=== PATIENT | male | born 1960 | race Caucasian/White ===

== ENCOUNTER → 2016-10-15 | Outpatient (REF) | payer OTHER ==
[~2016-10-15] MED LIST: /ADVA50050 IN; /ONDA4TA OR; ACET500T2 OR; ACIPHEX OR; ALEVE PO; EPIP0.3I IM; LIDO5DIS TOP; SYMB80AE IN; TYLENOL PM PO; XOPEAER IN
== END ==
LOC: M LAB REF 13:08
PROVIDERS: ATTEND Internal Medicine Pulmonary Disease
DX: J20.8 Acute bronchitis due to other specified organisms (principal)

== ENCOUNTER → 2016-10-30 | Outpatient (CLI) | payer BC, OTHER ==
[~2016-10-30] MED LIST changes: +ISOVUE-370 76% 100ML VIAL (Q9967) As Ordered ONE
--- NOTE | 2016-10-31 06:09 | REP ---
Clinical: Bronchiectasis. Technique: Axial contrast enhanced images from the thoracic inlet to the upper abdomen using 100 ml Isovue 370 intravenous contrast material with coronal and sagittal re-formations as well as high resolution imaging of the bilateral hemithoraces. Comparison: 11/27/2006. Findings: Moderate bronchiectasis is appreciated throughout the bilateral lung terrazas and most pronounced extending into the right middle lobe and bilateral lung bases. Scattered fibrosis and interstitial changes are appreciated again predominately involving the right middle lobe and lower lobes without evidence for acute consolidation, effusion or pneumothorax. There is a noncalcified lesion in the left upper lobe measuring 9.5 mm diameter (image 46) as well as an area of density along the medial right middle lobe measuring approximately 2.2 cm maximal diameter along with mediastinal and hilar adenopathy with nodes measuring up to 16 mm short axis diameter. The heart and pericardium appear normal. The thoracic aorta is unremarkable and without aneurysm or dissection. Musculoskeletal structures without focal osseous abnormality. Thyroid gland appears normal. Upper abdomen demonstrates normal bilateral adrenal glands. Incidental note is made of a hemangioma in the L1 vertebral body. Impression: 1. Diffuse bilateral moderate bronchiectasis with associated areas of interstitial disease/scarring and fibrosis. 2. Two noncalcified densities in the left upper lobe and right middle lobe as well as adenopathy with lymph nodes measuring 16 mm short-axis diameter. Neoplasm cannot be excluded. 3-6 months follow up and PET CT should be considered for further investigation. Signed by Tonny Jerome MD 10/31/2016 06:01 A
== END ==
LOC: M RAD 16:50
PROVIDERS: ATTEND Internal Medicine Pulmonary Disease
DX: J47.9 Bronchiectasis, uncomplicated (principal); R59.0 Localized enlarged lymph nodes; J98.4 Other disorders of lung
CPT/HCPCS: 71270; Q9967

== ENCOUNTER → 2016-11-12 | Outpatient (CLI) | payer BC, OTHER ==
[~2016-11-12] VITALS: Ht 180.3 cm; Wt 94.3 kg
[~2016-11-12] MED LIST changes: +ALBU17IN INH; +ALBU83IN INH; +ALBUTEROL SULFATE 2.5 MG/0.5 ML INH NEB SOLN As Ordered ONE; +ALBUTEROL SULFATE 2.5 MG/0.5 ML INH NEB SOLN INH ONE; +BREO1INH3 INH; +D5W 1,000 ML IV SCH; +EPINEPHrine 1MG/10ML SYRINGE 1.5IN As Ordered ONE; +GENT40VL INH; +IBUP200C PO; -ISOVUE-370 76% 100ML VIAL (Q9967) As Ordered ONE; +LIDOCAINE 2% MDV 20 ML VIAL As Ordered ONE; +LIDOCAINE 4% INJ 5 ML AMP INH ONE; +LIDOCAINE VISCOUS 2% SOLN 15ML UDC As Ordered ONE; +MIDAZOLAM INJ 2 MG/2 ML VIAL (J2250) As Ordered ONE; +MIDAZOLAM INJ 2 MG/2 ML VIAL (J2250) IV ONE; +MORPHINE 10 MG/ML 1ML VIAL As Ordered ONE; +MORPHINE 4 MG/ML 1ML SYRINGE IV ONE; +PANT20TA PO
[2016-11-12 11:41] VITALS: BP 108/78
--- NOTE | 2016-11-12 12:20 | REP ---
Portable chest x-ray: Single AP view. HISTORY: Post bronchoscopy. Question pneumothorax. Comparison chest x-ray June 03, 2016. Findings: There is no evidence of pneumothorax or hydrothorax. Cardiomediastinal silhouette is unremarkable and unchanged. No infiltrate is seen. Impression: No complication identified. Signed by Kulwinder White MD 11/12/2016 12:33 P
--- NOTE | 2016-11-12 12:27 | RO ---
DATE OF PROCEDURE: 11/12/2016 PREPROCEDURE DIAGNOSIS: Abnormal x-ray. POSTPROCEDURE DIAGNOSIS: Abnormal x-ray. SURGEON: Rubén Alberts MD SPECIAL EDUCATION ASSOCIATE: ANESTHESIA: FINDINGS: Included an abnormal right vocal cord with granulation tissue and abnormal motion, copious mucus, minimal granulation tissue medial basilar segment of left lower lobe, and mild airway ectasis. PROCEDURE PERFORMED: Fiberoptic bronchoscopy with transbronchoscopic washings bilaterally times two, brushing right lower lobe, and brushing right middle lobe for microbiologic specimens. DESCRIPTION OF PROCEDURE: The patient was seen and the procedure explained to the patient, as well as all the possible complications pertaining thereto, written and informed consent were obtained and placed in the chart. Before the procedure, the patient received morphine 4 mg, Versed 6 mg. When the anesthetic had sufficient time to take effect, bronchoscope was placed in through the left naris and into the posterior oropharynx. The epiglottis and vocal cords were visualized and noted to be free of lesion and moving normally. When further advancing toward the vocal cords it became apparent that the right arytenoid cartilage was enlarged, moved medially during phonation, and the vocal cords did not close fully during cough effort. Photographs were taken. The bronchoscope was then placed by the vocal cords and into the trachea. The tracheal mucosa was involved with excessive secretions. The obdulia was sharp. The airways of the left lung were found partially occluded by mucus. Photographs were taken. The bronchoscopy was placed into the left mainstem bronchus. Saline was used to lavage the airways of the left lung, and specimens obtained were collected in a Lukens trap. There was an area of mild granulation tissue in the medial basilar segment of the left lower lobe. This was visualized. There was no friability. After removal of secretions, the bronchoscope was retracted to the obdulia and reintroduced in the right mainstem bronchus. The right lung was found similarly to be involved with copious secretions, particularly the basilar segment. Photographs were taken. Thereafter, saline was used to lavage the airways and brushings for microbiology were performed in a sterile fashion into the right lower lobe, medial basilar segment area involved on CT imaging, and the medial segment of the right middle lobe. When specimens had been retrieved, the airways were lavaged again with saline until no further secretions could be obtained. The bronchoscope was retracted out through the patient's nose. He tolerated the procedure well and suffered no apparently complications. Postprocedural chest x-ray is pending.
== END | disposition home or self-care (01) ==
LOC: M OPP 09:35
PROVIDERS: ATTEND Internal Medicine Pulmonary Disease
DX: J38.3 Other diseases of vocal cords (principal); J47.9 Bronchiectasis, uncomplicated; J20.8 Acute bronchitis due to other specified organisms; J45.40 Moderate persistent asthma, uncomplicated; Z88.8 Allergy status to other drugs, medicaments and biological substances; Z91.030 Bee allergy status; Z79.2 Long term (current) use of antibiotics; Z79.51 Long term (current) use of inhaled steroids; Z79.899 Other long term (current) drug therapy; Z79.1 Long term (current) use of non-steroidal anti-inflammatories (NSAID)
CPT/HCPCS: 31622; 31623; 71010; 87070; 87071; 87077; 87102; 87116; 87186; 87205; 87206; 88104; 94640; J2250

== ENCOUNTER → 2017-01-09 | Outpatient (REF) | payer OTHER ==
[~2017-01-09] MED LIST changes: -ALBUTEROL SULFATE 2.5 MG/0.5 ML INH NEB SOLN As Ordered ONE; -ALBUTEROL SULFATE 2.5 MG/0.5 ML INH NEB SOLN INH ONE; -D5W 1,000 ML IV SCH; -EPINEPHrine 1MG/10ML SYRINGE 1.5IN As Ordered ONE; -LIDOCAINE 2% MDV 20 ML VIAL As Ordered ONE; -LIDOCAINE 4% INJ 5 ML AMP INH ONE; -LIDOCAINE VISCOUS 2% SOLN 15ML UDC As Ordered ONE; -MIDAZOLAM INJ 2 MG/2 ML VIAL (J2250) As Ordered ONE; -MIDAZOLAM INJ 2 MG/2 ML VIAL (J2250) IV ONE; -MORPHINE 10 MG/ML 1ML VIAL As Ordered ONE; -MORPHINE 4 MG/ML 1ML SYRINGE IV ONE
== END ==
LOC: M LAB REF 13:33
PROVIDERS: ATTEND Internal Medicine Pulmonary Disease
DX: J47.0 Bronchiectasis with acute lower respiratory infection (principal); J45.40 Moderate persistent asthma, uncomplicated

== ENCOUNTER → 2017-02-03 | Outpatient (REF) | payer OTHER | LOC: M LAB REF 13:50 | PROVIDERS: ATTEND Internal Medicine Pulmonary Disease | DX: J15.1 Pneumonia due to Pseudomonas (principal) ==

== ENCOUNTER 2017-03-06 22:20 | Inpatient (IN) | payer BC, OTHER ==
[~2017-03-06] VITALS: Ht 180.3 cm; Wt 93.4 kg
[2017-03-06] MEDS ORDERED: METH75TA PO (22:40)
[2017-03-06] MEDS ORDERED: BIAX1TAB PO (22:40)
[2017-03-06] MEDS ORDERED: PRED20TA PO (22:40)
[2017-03-06] MEDS ORDERED: NAPR500T2 PO (22:40)
[2017-03-06 23:32] LABS: DIFF SLIDE NUMBER 328; MEAN CORPUSCULAR HEMOGLOBIN 32.3 pg (27.0-33.0); MEAN CORPUSCULAR HGB CONC 35.3 g/dl (32.0-36.5); MEAN CORPUSCULAR VOLUME 91.7 fl (80.0-96.0); PLATELET COUNT, AUTOMATED 189 k/mm3 (150-450); WHITE BLOOD COUNT 9.7 K/mm3 (4.0-10.0)
[2017-03-06] MEDS ORDERED: NS 1,000 ML IV SCH (23:50)
[2017-03-07] VITALS (8 sets, daily range): BP systolic 113–139; BP diastolic 79–91
--- NOTE | 2017-03-07 | REPUSA ---
Clinical history: Cough. Comparison: None. Findings: Frontal and lateral views of the chest were obtained. The mediastinum and cardiac silhouett e are within normal limits. The lungs are clear. No pleural effusion or pneumothorax is seen. The oss eous structures and soft tissues are unremarkable. Impression: No acute disease.
[2017-03-07 00:01] LABS: ANION GAP 10 MEQ/L (8-16); BLOOD UREA NITROGEN 19 MG/DL (7-18); CALCIUM LEVEL 9.3 MG/DL (8.5-10.1); CARBON DIOXIDE LEVEL 20 MEQ/L (21-32); CHLORIDE LEVEL 108 MEQ/L (98-107); CREATININE FOR GFR 1.45 MG/DL (0.70-1.30); GLUCOSE, FASTING 171 MG/DL (70-105); POTASSIUM SERUM 2.8 MEQ/L (3.5-5.1); SODIUM LEVEL 138 MEQ/L (136-145)
[2017-03-07] MEDS: ONDANSETRON 4MG/2ML VIAL (J2405) IV ONE ×2 (00:02)
[2017-03-07 00:13] LABS: BANDS 2 % (< 11)
[2017-03-07] MEDS ORDERED: KCL 10MEQ IN 100ML SWI (KRUN) 10 MEQ in APPROPRIATE DILUENT 1 EA IV ONE ×2 (00:15)
[2017-03-07] MEDS ORDERED: POTASSIUM CHLORIDE 10 MEQ SR TABLET PO ONE (00:15)
[2017-03-07 00:16] LABS: ALT/SGPT 27 U/L (12-78); AST/SGOT 19 U/L (15-37)
[2017-03-07 00:17] LABS: ALBUMIN 3.7 GM/DL (3.2-5.2); ALBUMIN/GLOBULIN RATIO 0.86 (1.00-1.93); ALKALINE PHOSPHATASE 100 U/L (45-117); BILIRUBIN,DIRECT 0.1 MG/DL (0.0-0.2); BILIRUBIN,TOTAL 0.3 MG/DL (0.2-1.0)
[2017-03-07] MEDS ORDERED: ISOVUE-370 76% 100ML VIAL (Q9967) As Ordered ONE (00:17)
--- NOTE | 2017-03-07 01:20 | REPUSA ---
CLINICAL HISTORY: Abdominal pain. TECHNIQUE: Multiple axial, sagittal and coronal CT images were obtained through the abdomen and pelvi s after administration of intravenous contrast material. COMMENTS: Scattered simple hepatic cysts with the largest measuring 1.1 cm. The liver is mildly enlarged with decreased attenuation without mass or defect. There is no intra or extrahepatic biliary ductal dilatation. The spleen is normal. The gallbladder is within normal limits . The pancreas is of normal contour and attenuation characteristics. There is no evidence of adrenal mass. Both kidneys demonstrate prompt and equal nephrograms. The kidneys are normal in size, shape and conf iguration. There is no evidence of renal or ureteral mass. No renal or ureteral calculi are identifie d. There is no hydroureter or hydronephrosis. No evidence for appendicitis. Fluid-filled distended stomach. Fluid-filled distended proximal small b owel. Transition to normal caliber small bowel to the left lower quadrant. There is no evidence of ab dominal ascites or lymphadenopathy. There is no evidence of intrinsic or extrinsic bladder mass. There is no pelvic ascites or lymphadeno kory. Images of the lung bases show no evidence of pleural or parenchymal mass. There are no pleural effusi ons. Bilateral basilar changes of cystic bronchiectasis. The bony structures are free of lytic or blastic lesions. Multilevel degenerative changes are seen in volving the thoracolumbar spine. Scattered calcifications are seen involving the aorta and major bran ches compatible with atherosclerosis. IMPRESSION: Moderate partial small bowel obstruction. Transition zone in the left lower quadrant. No evidence of ascites. No evidence of bowel perforation or pneumatosis intestinalis. Mild hepatomegaly with fatty liver infiltration. Bilateral basilar changes of cystic bronchiectasis. Thank you for your kind referral of this patient.
--- NOTE | 2017-03-07 01:20 | REPUSA ---
CLINICAL HISTORY: Chest pain, exclude PE. TECHNIQUE: Multiple incremental axial, coronal and oblique images are obtained from the thoracic inle t to the upper abdomen. Intravenous contrast material was administered as per pulmonary embolism prot ocol. COMMENTS: Cystic bronchiectasis in the bases more on the right side. Associated bronchitis. Bilateral basilar atelectatic pulmonary changes. There is excellent opacification of pulmonary arterial system without evidence for pulmonary embolism . Aorta is of normal caliber without evidence for dissection or aneurysm. There is no evidence of pleural or parenchymal mass. There are no pleural effusions. There is no evid ence of hilar or mediastinal lymphadenopathy. The heart and great vessels are within normal limits. Images of the upper abdomen demonstrate no evidence of adrenal mass. The bony structures are free of lytic or blastic lesions. Multilevel degenerative changes are seen in volving the visualized thoracolumbar spine. Scattered calcifications are seen involving the aorta and major branches compatible with atherosclero sis. IMPRESSION: No evidence for pulmonary embolism. Cystic bronchiectasis. Bronchitis. Thank you for your kind referral of this patient.
[2017-03-07] MEDS ORDERED: MORPHINE 4 MG/ML 1ML SYRINGE IV ONE ×2 (01:30)
[2017-03-07] MEDS ORDERED: ALLE180T33 PO (02:02)
[2017-03-07] MEDS ORDERED: LIDO5DIS36 TD (02:02)
[2017-03-07] MEDS ORDERED: PRED10TA PO (02:02)
[2017-03-07] MEDS ORDERED: EPIP0.3I2 INJ (02:02)
[2017-03-07] MEDS ORDERED: TYLE1TAB5 PO (02:02)
[2017-03-07] MEDS ORDERED: PANT40TA2 PO (02:02)
[2017-03-07 03:24] LABS: MAGNESIUM LEVEL 1.8 MG/DL (1.8-2.4)
--- NOTE | 2017-03-07 04:08 | ER ---
DATE OF CONSULTATION: 03/07/2017 REASON FOR CONSULTATION: CT suggesting possible small bowel obstruction. HISTORY OF PRESENT ILLNESS: The patient is a pleasant 56-year-old man who presented to the emergency department for evaluation at 4 on 03/06. He presented complaining of primarily shortness of breath. He reported initially feeling unwell approximately 2 days earlier when he noted a fever in the afternoon or evening. He noted a little mild abdominal discomfort. He also reports that he has had diarrhea for 3 days. He again had a fever on the evening of the . On the , he continued to feel unwell. He reports having had a soft bowel movement in the morning. He had some flatus. He was not hungry, but continued to try to eat a diet and had two Ensures on the . He was seen in an urgent care center at about 2 o'clock in the afternoon of the . The treating individual listened to his lungs, diagnosed him with pneumonia and ordered prescriptions for prednisone 60 mg and clarithromycin twice daily. He returned home after getting his medications. He took one dose of both prednisone and erythromycin. He took about half of a nebulizer and slept for a time. He developed some nausea and just felt drained physically. He denied any vomiting. He came to the emergency department by I believe ambulance and had two nebulizers on the way to the emergency department. In the emergency department, he was evaluated with a chest x-ray, CT angiography of the chest, and a CT scan of the abdomen and pelvis. He also had laboratory studies obtained. His CT of the abdomen shows some variability in the diameter of his small bowel and the radiologist interpreted this as being possibly consistent with a partial small bowel obstruction. I was consulted to evaluate the patient. He continues to report that he has had small amounts of flatus. He does have some abdominal pain at rest and occasional more severe crampy-type pains. MEDICATIONS: The patient's reported medications at the time of presentation include: - Breo Ellipta inhaler once daily - albuterol inhaler, as well as albuterol nebulizers as needed - naproxen 500 mg twice daily as needed for pain - methocarbamol 750 mg one twice daily as needed for muscle spasms - clarithromycin 500 mg twice daily - EpiPen as needed - Tylenol Extra Strength as needed - lidocaine patch to the chest as needed - Protonix 40 mg daily - prednisone - Jennifer ALLERGIES: Reported to ONDANSETRON, which leads to the itching; LEVOFLOXACIN, which leads to itching; bee venom and seasonal allergies. PAST SURGICAL HISTORY: He has had a partial left knee replacement about 2 years ago and has had bilateral knee scopes. He has had a previous colonoscopy, as well as a bronchoscopy. 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 He has bronchiectasis. His primary physician is Dr. Bereket Pérez, but he has seen Dr. Alberts of pulmonary medicine for medicine issues. He did have a bronchoscopy actually back in October or November of this year. He has multiple cultures in the medical record, cultures which yielded Pseudomonas aeruginosa. He denies any cardiac issues. 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 He is and accompanied to the emergency department by his significant other. FAMILY HISTORY: Noncontributory. REVIEW OF SYSTEMS: Reveals no history of chest pain or palpitations. He denies seizure or stroke. He has had no history of deep venous thrombosis (DVT) or pulmonary embolus. He is not producing any sputum. He denies any dysuria or hematuria. As noted, he has been having diarrhea for 3 days. He has had some nausea, but no vomiting. He has had no melena or hematochezia. There is no history of peptic ulcer disease, hepatitis or pancreatitis. PHYSICAL EXAMINATION: Reveals a pleasant man lying quietly on the emergency department stretcher. His vital signs show a temperature of 97.2 degrees at time of presentation. His pulse had been running in the low 70s to mid 80s. His blood pressure most recently is 127/84. His oxygen saturation on room air is in the mid to upper 90s. The patient is alert and oriented. Sclerae are anicteric. Mucous membranes are moist to somewhat tacky. The neck is supple without mass. Heart exam shows a regular rate and rhythm. The lungs show generally clear breath sounds bilaterally. The abdomen is flat. He has no scars. There is no evident hernia. He has bowel sounds present in all four quadrants. There is no tympany to percussion. There is no significant tenderness to mild palpation. Extremities show no peripheral edema. He has intact radial and pedal pulses. Digital rectal examination is deferred. LABORATORY STUDIES: Include a CBC showing a white count of 9.7 with a differential showing 94% neutrophils, 2 bands, 3 lymphocytes, and 1 atypical lymphocyte. Hemoglobin is 18 with a hematocrit of 50 and the platelet count is 189,000. Chemistry profile shows a BUN of 19, creatinine 1.45. Sodium is 138 with a potassium of 2.8, chloride 108, and the CO2 is 20. Glucose is 171. His liver function tests are normal. Total protein is 8.0 with an albumin of 3.7. He has a troponin level of less than 0.02. He had a chest x-ray obtained which the teleradiologist interpreted as showing no acute disease. A CT angiogram of the chest revealed no evidence of pulmonary embolism with some bronchiectasis noted and a suggestion of bronchitis. A CT scan of the abdomen and pelvis was obtained, which the radiologist interpreted as showing a moderate to partial small bowel obstruction with a transition zone in the left lower quadrant. There was no ascites. There was no evidence of free air. There was no inflammatory change within the bowel. IMPRESSION: 1. No evidence by history for intestinal obstruction with a CT scan that shows some variability in the small bowel loops, but no strong evidence for bowel obstruction. 2. Three-day history of diarrhea, possible gastroenteritis. 3. Bronchiectasis and prior bronchiolitis obliterans-organizing pneumonia (BOOP). 4. Recent diagnosis of pneumonia, which may or may not be true, but that is not my specialty and somebody smarter will have to make the call on that. RECOMMENDATIONS: At this point, I see no point in an admission to the surgical service. I do not see any surgery in this man's near future, evident reason, either by history or CT for a bowel obstruction. He has not had any prior surgery. He has no evident tumor or infection and there is no evidence of hernia. His history is good, I think, for some sort of infectious process leading to his diarrhea, his fatigue and his fevers as reported at home. I think a medical evaluation and possible admission is in this man's best interest, particularly given his past history of pulmonary disease.
[2017-03-07] MEDS ORDERED: ALBUTEROL SULFATE 2.5 MG/0.5 ML INH NEB SOLN INH PRN (04:30)
[2017-03-07] MEDS ORDERED: ACETAMINOPHEN 650 MG SUPP PR PRN (04:30)
[2017-03-07] MEDS ORDERED: ALBUTEROL 90 MCG/ACT 8GM HFA INHALER INH PRN (04:30)
[2017-03-07] MEDS ORDERED: ONDANSETRON 4MG/2ML VIAL (J2405) IV PRN (04:30)
[2017-03-07] MEDS ORDERED: METOCLOPRAMIDE INJ 10MG/2ML VIAL (J2765) IV PRN (05:00)
[2017-03-07] MEDS: KCL 10MEQ IN 100ML SWI (KRUN) 10 MEQ in APPROPRIATE DILUENT 1 EA IV SCH ×4 (05:30→07:51)
[2017-03-07] MEDS: HEPARIN SOD (PORCINE) 5000 UNITS/ML VIAL SC SCH ×3 (05:30→21:25)
[2017-03-07] MEDS: NS 1,000 ML IV SCH ×2 (05:30→16:13)
[2017-03-07] MEDS: MORPHINE 2 MG/ML 1ML SYRINGE IV PRN ×2 (05:41→09:50)
--- NOTE | 2017-03-07 06:11 | ECGEPIP ---
Stationary ECG Study [facility] - ED Test Date: 2017-03-06 Pat Name: RADHA MEIER Department: Room: - Gender: M Eligibility Clerk: bell : 1960 Requested By: MARIA E River Order Number: [id number] Reading MD: Aaron Tate Measurements Intervals [place] Rate: 74 P: -10 DE: 145 QRS: 63 QRSD: 92 T: 47 QT: 363 QTc: 404 Interpretive Statements SINUS RHYTHM NSTTW ABNORMALITIES SIMILAR TO 10/31/11 Electronically Signed On 03-07-2017 6:11:31 EDT by Aaron Tate
[2017-03-07 07:14] LABS: MEAN CORPUSCULAR HEMOGLOBIN 31.9 pg (27.0-33.0); MEAN CORPUSCULAR HGB CONC 34.4 g/dl (32.0-36.5); MEAN CORPUSCULAR VOLUME 92.6 fl (80.0-96.0); PLATELET COUNT, AUTOMATED 206 k/mm3 (150-450); RED CELL DISTRIBUTION WIDTH 13.1 % (11.5-14.5); WHITE BLOOD COUNT 12.4 K/mm3 (4.0-10.0)
[2017-03-07 07:32] LABS: ANION GAP 6 MEQ/L (8-16); BLOOD UREA NITROGEN 16 MG/DL (7-18); CALCIUM LEVEL 9.1 MG/DL (8.5-10.1); CARBON DIOXIDE LEVEL 25 MEQ/L (21-32); CHLORIDE LEVEL 107 MEQ/L (98-107); GLOMERULAR FILTRATION RATE > 60.0 (>56); GLUCOSE, FASTING 140 MG/DL (70-105); POTASSIUM SERUM 3.9 MEQ/L (3.5-5.1); SODIUM LEVEL 138 MEQ/L (136-145)
--- NOTE | 2017-03-07 07:33 | HPEPDOC ---
General Date of Admission March 07, 2017 at 04:31 Primary Care Physician: CONG MENENDEZ MD [facility] Attending Physician: MARLY BENITEZ DO Chief Complaint The patient is a 56-year-old male admitted with a reason for visit of Partial Small Bowel Obstruction. Source: Patient, Family, RN notes reviewed, Old records Exam Limitations: No limitations Associated Symptoms: Diaphoresis, Nausea, Shortness of breath History of Present Illness Mr. Pena is a 56-year-old male who presents to [facility]'s emergency Department with fever, shortness of breath, and abdominal pain. He is accompanied by his who provides some of the history. Past medical history significant for BOOP, chronic pleuritic chest pain, allergies, gastric esophageal reflux disease, muscle spasms, history of chronic pulmonary pseudomonas, history of nonbleeding internal hemorrhoids. Patient states that he developed a fever of 101 Friday evening for which she took Tylenol. States that the fever broke Friday at 3 AM. Reports that he did not "feel too bad" so that morning he mowed the lawn for about half an hour and went to go lay down. He reports a fever that Friday of 101. Continued taking Tylenol. Reports that on morning he couldn't "shake anything "and he felt like "crap". Over these past 2-1/2 days he has had progressive shortness of breath with exertion. Denies shortness of breath at rest, orthopnea , PND. Patient then states that on Friday his stomach started to hurt. Indicates the pain across his lower abdomen. Went to the [facility] on was diagnosed clinically without chest x-ray to have pneumonia. Started on prednisone and clarithromycin. Patient has taken 1 dose of each. He returned home evening and went to lay down. Used half a nebulizer treatment shortness of breath and fell asleep. Reports that throughout his abdomen would hurt even with movement. Reports that he cannot evening and tried to cough something up, but was unable to. Reports feelings of nausea, minimal bloating, bilateral lower abdominal pain, weakness, dizziness, one episode of night sweats Friday evening, hoarseness, left flank pain, one episode of joint pain, nonbloody diarrhea since Friday. Patient also reports that he has lost about 5 pounds over the course of the week. Reports that he is remaining hydrated, but is not eating much. Patient denies headache, blurry vision, diplopia, acute vision loss, tinnitus, acute hearing loss, sore throat, cough, vomiting, lesions, rashes, unexplainable bruising, peripheral edema, urinary frequency, urinary urgency, dysuria, hematuria, constipation, melena, hematochezia. Hospitalist service was consulted and patient was admitted for further medical management. Home Medications Scheduled (Epipen 2-Yan) 0.3 Mg/0.3 Ml Inj, 0.3 MG INJ ASDIRECTED, (Reported) Clarithromycin (Biaxin) 500 Mg Tab, 500 MG PO BID, (Reported) Fexofenadine Hydrochloride (Jennifer Allergy) 180 Mg Tab, 180 MG PO DAILY, ( Reported) Fluticasone/Vilanterol (Breo Ellipta 200-25 Mcg/INH) 1 Inh Inh, 1 PUFF INH DAILY , (Reported) Lidocaine (Lidoderm) 5 % Dis, 1 PATCH TD DAILY, (Reported) PLACES ON CHEST Pantoprazole Sodium (Pantoprazole Sodium) 40 Mg Tab, 40 MG PO DAILY, (Reported) Prednisone (Prednisone) 10 Mg Tab, 10 MG PO ASDIRECTED, (Reported) 3 TABS FOR 3 DAYS, 2 TABS FOR 3 DAYS, 1 TAB FOR 3 DAYS Scheduled PRN (Tylenol Pm Extra Strength 500-25 mg) 1 Tab Tab, 1 TAB PO QHS PRN for SLEEP, ( Reported) Albuterol Sulfate (Ventolin Hfa) 200 Puff/8 Gm Aers, 2 PUFF INH Q4HP PRN for WHEEZING, (Reported) Albuterol Sulfate (Albuterol Sulfate) 2.5 Mg/3 Ml Nebu, 2.5 MG INH BIDP PRN for WHEEZING, (Reported) Methocarbamol (Methocarbamol) 750 Mg Tab, 1 TAB PO BID PRN for MUSCLE SPASMS, ( Reported) Naproxen (Naproxen) 500 Mg Tab, 1 TAB PO BID PRN for PAIN, (Reported) Allergies Coded Allergies: Bee Venom (Unverified Allergy, Mild, 01/12/13) SEASONAL ALLERGIES (Unverified Allergy, Mild, 03/26/10) Levofloxacin (Verified Allergy, Unknown, itching, 03/06/17) Ondansetron (Verified Allergy, Unknown, itching, 03/06/17) Past Medical History Medical History 1. BOOP 2. Allergies 3. Gastroesophageal reflux disease 4. Muscle spasms 5. Chronic pulmonary pseudomonas 6. History of nonbleeding internal hemorrhoids 7. History of adenomatous polyp 8. Cutaneous hyperkeratosis Surgical History 1. Bronchoscopy 2. Polypectomy 3. Colonoscopy 4. 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 Dyspnea, Edema, Lt Headedness Gastrointestinal: Reports: Nausea, Abdominal Pain (bilateral lower quadrants), Diarrhea (nonbloody, 3 days), Denies: Vomiting, Constipation, Melena, Hematochezia Genitourinary: Denies: Dysuria, Frequency, Incontinence, Hematuria Hematologic: Denies: Bruising Endocrine: Reports: Polydipsia Musculoskeletal: Reports: Joint Pain (one episode) Neurological: Reports: Weakness, Denies: Numbness Physical Examination General Exam: Positive: Alert, Cooperative, Moderate Distress Eye Exam: Positive: PERRLA, Conjunctiva & lids normal, EOMI, Negative: Sclera icteric, Ptosis ENT Exam: Positive: Atraumatic, Mucous membr. moist/pink, Pharynx Normal, Tongue Midline (White plaques noted on tongue diffusely), Nares Patent, Negative: Pharyngeal Edema Neck Exam: Positive: Supple, Lymphadenopathy, Negative: JVD, thyromegaly Chest Exam: Positive: Clear to auscultation, Normal air movement Heart Exam: Positive: Rate Normal, Regular Rhythm, Normal S1, Normal S2, Negative: Gallops, Murmurs, Rubs Telemetry: Positive: No significant arrhythmia Abdomen Exam: Positive: BS Hypoactive, Tenderness (exquisitely tender to light palpation), Other (thank you to palpation in the left upper quadrant, dull to percussion in the left upper quadrant), Negative: Soft Extremity Exam: Positive: Normal pulses, Negative: Clubbing, Cyanosis, Edema, Tenderness, Swelling Skin Exam: Negative: Rash, Lesion Neuro Exam: Positive: Normal Speech, Cranial Nerves 3-12 NL Other physical findings Chest x-ray IMPRESSION: No acute disease. Chest CT angiogram IMPRESSION: No evidence for pulmonary embolism. Cystic bronchiectasis. Bronchitis. Abdomen and pelvis CT with IV contrast only IMPRESSION: Moderate partial small bowel obstruction. Transition zone in the left lower quadrant. No evidence of ascites. No evidence of bowel perforation or pneumatosis intestinalis. Mild hepatomegaly with fatty liver infiltration. Bilateral basilar changes of cystic bronchiectasis. Vital Signs Vital Signs Date Time Temp Pulse Resp B/P (MAP) Pulse Ox O2 Delivery O2 Flow Rate FiO2 03/07/17 05:51 18 03/07/17 05:30 98.1 97 Room Air 03/07/17 05:30 79 134/85 (101) 95 131/86 (101) 97 139/82 (101) Height (in): 71 Weight (kg): 93.9 BMI (kg): 28.9 Laboratory Data Labs 24H Laboratory Tests 2 03/06/17 23:21: Neutrophils 94H, Band Neutrophils 2, Lymphocytes (Manual) 3L, Atypical Lymphocytes 1, Platelet Estimate NORMAL, Red Blood Cell Morphology NORMAL, Anion Gap 10, Glomerular Filtration Rate 54.0L, Lactic Acid Level 2.3*H, Calcium Level 9.3, Magnesium Level 1.8, Aspartate Amino Transf (AST/SGOT) 19, Alanine Aminotransferase (ALT/SGPT) 27, Alkaline Phosphatase 100, Total Bilirubin 0.3, Direct Bilirubin 0.1, Total Creatine Kinase 78, Creatine Kinase MB 1.0, Creatine Kinase MB Relative Index 1.28, Troponin I < 0.02, B-Type Natriuretic Peptide 9.7, Total Protein 8.0, Albumin 3.7, Albumin/Globulin Ratio 0.86L, Lipase 74 CBC/BMP Laboratory Tests 03/06/17 23:21 Red Blood Count 5.46, Mean Corpuscular Volume 91.7, Mean Corpuscular Hemoglobin 32.3, Mean Corpuscular Hemoglobin Concent 35.3, Red Cell Distribution Width 13.0 Microbiology Microbiology 03/06/17 Blood Culture, Received Pending 03/06/17 Blood Culture, Received Pending Assessment/Plan Mr. Pena is a 56-year-old male with a past medical history significant for BOOP, chronic pleuritic chest pain, allergies, gastric esophageal reflux disease, muscle spasms, history of chronic pulmonary pseudomonas, history of nonbleeding internal hemorrhoids who presents with fever , shortness of breath, and abdominal pain found to have partial small bowel obstruction. Plan / VTE VTE Prophylaxis Ordered?: Yes (heparin 5000 units subcutaneous every 8 hours) Plan Plan Fever Likely secondary to underlying bronchitis noted on CT angiogram. Obtain lactic acid, urinalysis and culture, blood culture. Provide Tylenol as needed for fever. Obtain vital signs every 4 hours. Abdominal pain Likely secondary to partial small bowel obstruction. Patient is nothing by mouth. Intravenous fluid resuscitation at 100 mLs/hr. Pain control with morphine. Reglan IV for nausea. Could consider placing an NG tube patient's abdominal distention worsens. General surgery has been consulted. Diarrhea Impression underlying gastroenteritis. Obtaining GI panel and stool for occult blood. Started patient on Bacid. Shortness of breath secondary to BOOP Continue patient on albuterol and Ventolin. Started patient on Symbicort. Oxygenation is appropriate at 95% on room air. Hypokalemia Likely secondary to patient's diarrhea. Replenishment provided in the emergency department. Also given patient two K-runs. The [facility]. Acute kidney injury Likely secondary to some mild dehydration. Intravenous fluid resuscitation 100 mLs/hr. Orthostatic vital signs. These be negative. As such orthostatic vital signs discontinued. Oral candidiasis Start patient on nystatin swish and swallow. Disposition Admit: Progressive care unit Anticipated hospitalization: 2 nights Attending: Dr. Meek Consultation: Dr. Dawson IVF: Initiate (NS @ 100 mLs/hr) Diet: Make NPO Activity: Bedrest (with commode) Medications: Change to IV, Replete Electrolytes IV, Replete Electrolytes PO Diagnostics: Check Labs, Repeat Labs in AM, Obtain Cultures Anticipated Discharge: Home RONEY IVERSON-Rody March 07, 2017 07:33
[2017-03-07 08:04] LABS: BANDS 10 % (< 11)
[2017-03-07 08:11] LABS: DIFF SLIDE NUMBER 104
[2017-03-07] MEDS ORDERED: NYSTATIN 500,000 U/5 ML SUSP UDC SS SCH (09:00)
[2017-03-07] MEDS: LIDOCAINE 5% (LIDODERM) PATCH TD SCH (09:00)
[2017-03-07] MEDS ORDERED: SYMBICORT 160/4.5MCG INHALER 6GM INH SCH (09:00)
[2017-03-07] MEDS: PANTOPRAZOLE 40MG INJ (PROTONIX) (C9113) IV SCH (09:05)
[2017-03-07] MEDS: LACTOBACILLUS ACIDOPHILUS CAP (BACID) PO SCH ×2 (09:08→21:24)
[2017-03-07] MEDS: PROMETHAZINE INJ 25 MG/ML VIAL (J2550) IV PRN ×2 (10:42→17:35)
--- NOTE | 2017-03-07 15:33 | IPNPDOC ---
Subjective Date Seen The patient was seen on 03/07/17. Subjective Chief Complaint/HPI The patient is a 56-year-old male admitted with a reason for visit of Partial Small Bowel Obstruction. Events since last encounter Symptoms improved- nausea mainly resolved, some abd discomfort, passing flatus, no bm feels wiped out Pulmonary: Denies: Dyspnea, Cough Cardiovascular: Denies: Chest Pain, Palpitations Gastrointestinal: Reports: Nausea, Abdominal Pain, Denies: Vomiting Objective Physical Examination General Exam: Positive: Alert, Cooperative, No Acute Distress Eye Exam: Negative: Sclera icteric ENT Exam: Positive: Mucous membr. moist/pink, Tongue Midline (geographic tongue ) Chest Exam: Positive: Clear to auscultation, Normal air movement, Negative: Rales, Rhonchi, Wheezing Heart Exam: Positive: Rate Normal, Regular Rhythm, Normal S1, Normal S2 Telemetry: Positive: No significant arrhythmia Abdomen Exam: Positive: BS Hypoactive, Other, Negative: Soft, Tenderness Assessment /Plan Problems (1) Geographic tongue Status: Chronic (2) Gastroenteritis Status: Acute Problem Text: Not PSBO I d/w Dr. Dawson in person ok to have ice chips no bm today- await gi panel still with nausea made better with phenergan (3) BOOP (bronchiolitis obliterans with organizing pneumonia) Status: Chronic Problem Text: with acute bronchitis no respiratory issues perfers to use his home breo which he brought with him (4) GERD (gastroesophageal reflux disease) Status: Chronic (5) ARF (acute renal failure) Status: Acute Problem Text: had elevated lactic acid improving- on ivf (6) Hypokalemia Status: Acute Problem Text: replete as needed (7) Bronchiectasis Status: Chronic Problem Text: chronic pseudomonas Plan/VTE VTE Prophylaxis Ordered?: Yes (heparin 5000 units subcutaneous every 8 hours) VS, I&O, 24H, Fishbone Vital Signs/I&O Vital Signs Date Time Temp Pulse Resp B/P (MAP) Pulse Ox O2 Delivery O2 Flow Rate FiO2 03/07/17 12:45 Room Air 03/07/17 12:11 113 136/79 (98) 94 03/07/17 12:00 99.2 18 I&O- Last 24 Hours up to 6 AM 03/07/17 06:00 Intake Total 0 ml Output Total 0 ml Balance 0 ml Laboratory Data 24H LABS Laboratory Tests 2 03/06/17 23:21: Neutrophils 94H, Band Neutrophils 2, Lymphocytes (Manual) 3L, Atypical Lymphocytes 1, Platelet Estimate NORMAL, Red Blood Cell Morphology NORMAL, Anion Gap 10, Glomerular Filtration Rate 54.0L, Lactic Acid Level 2.3*H, Calcium Level 9.3, Magnesium Level 1.8, Aspartate Amino Transf (AST/SGOT) 19, Alanine Aminotransferase (ALT/SGPT) 27, Alkaline Phosphatase 100, Total Bilirubin 0.3, Direct Bilirubin 0.1, Total Creatine Kinase 78, Creatine Kinase MB 1.0, Creatine Kinase MB Relative Index 1.28, Troponin I < 0.02, B-Type Natriuretic Peptide 9.7, Total Protein 8.0, Albumin 3.7, Albumin/Globulin Ratio 0.86L, Lipase 74 03/07/17 07:00: Neutrophils 78H, Band Neutrophils 10, Lymphocytes (Manual) 4L, Platelet Estimate NORMAL, Red Blood Cell Morphology NORMAL, Anion Gap 6L, Glomerular Filtration Rate > 60.0, Lactic Acid Level 1.5, Calcium Level 9.1, Monocytes ( Manual) 8, Blood Urea Nitrogen 16, Creatinine 1.30, Sodium Level 138, Potassium Level 3.9#, Chloride Level 107, Carbon Dioxide Level 25 03/07/17 07:48: Urine Appearance CLEAR, Urine Color YELLOW, Urine pH 6.0, Urine Specific [place] 1.051, Urine Protein NEGATIVE, Urine Glucose (UA) NEGATIVE, Urine Ketones TRACEH, Urine Urobilinogen 0.2, Urine Bilirubin NEGATIVE, Urine Leukocyte Esterase NEGATIVE, Urine Blood NEGATIVE, Urine Nitrite NEGATIVE, Urine WBC (Auto) 0, Urine RBC (Auto) 3, Urine Hyaline Casts (Auto) 0, Urine Bacteria (Auto) NEGATIVE, Urine Squamous Epithelial Cells 0, Urine Sperm (Auto) 03/07/17 09:06: Lactic Acid Followup at 4 Hours 1.4 CBC/BMP Laboratory Tests 03/06/17 23:21 Red Blood Count 5.46, Mean Corpuscular Volume 91.7, Mean Corpuscular Hemoglobin 32.3, Mean Corpuscular Hemoglobin Concent 35.3, Red Cell Distribution Width 13.0 03/07/17 07:00 Red Blood Count 5.32, Mean Corpuscular Volume 92.6, Mean Corpuscular Hemoglobin 31.9, Mean Corpuscular Hemoglobin Concent 34.4, Red Cell Distribution Width 13.1 , Calcium Level 9.1 Microbiology Microbiology 03/06/17 Blood Culture, Received Pending 03/06/17 Blood Culture, Received Pending 03/07/17 Urine Culture, Received Pending DONELL QUINTERO MD March 07, 2017 15:33
[2017-03-07] MEDS ORDERED: **NOTE PATIENT COMMENT** MISC XX SCH (21:00)
[2017-03-08] MEDS: NS 1,000 ML IV SCH ×2 (00:30→10:30)
[2017-03-08 06:00] VITALS: BP 115/76
[2017-03-08] MEDS: HEPARIN SOD (PORCINE) 5000 UNITS/ML VIAL SC SCH ×2 (06:15→12:15)
[2017-03-08 06:44] LABS: MEAN CORPUSCULAR HEMOGLOBIN 30.5 pg (27.0-33.0); MEAN CORPUSCULAR HGB CONC 32.8 g/dl (32.0-36.5); MEAN CORPUSCULAR VOLUME 92.9 fl (80.0-96.0); PLATELET COUNT, AUTOMATED 184 k/mm3 (150-450); RED CELL DISTRIBUTION WIDTH 13.3 % (11.5-14.5); WHITE BLOOD COUNT 7.1 K/mm3 (4.0-10.0)
[2017-03-08 06:51] LABS: ANION GAP 10 MEQ/L (8-16); BLOOD UREA NITROGEN 20 MG/DL (7-18); CALCIUM LEVEL 8.5 MG/DL (8.5-10.1); CARBON DIOXIDE LEVEL 18 MEQ/L (21-32); CHLORIDE LEVEL 112 MEQ/L (98-107); CREATININE FOR GFR 1.22 MG/DL (0.70-1.30); GLOMERULAR FILTRATION RATE > 60.0 (>56); GLUCOSE, FASTING 94 MG/DL (70-105); POTASSIUM SERUM 3.7 MEQ/L (3.5-5.1); SODIUM LEVEL 140 MEQ/L (136-145)
[2017-03-08 07:10] LABS: BASOPHILS 2 % (0-4); EOSINOPHILS 2 % (0-5)
[2017-03-08] MEDS: LIDOCAINE 5% (LIDODERM) PATCH TD SCH (09:00)
[2017-03-08] MEDS ORDERED: BREO ELLIPTA 200/25 (PATIENT'S OWN MED) INH SCH (09:00)
[2017-03-08] MEDS: LACTOBACILLUS ACIDOPHILUS CAP (BACID) PO SCH (09:49)
[2017-03-08] MEDS: PANTOPRAZOLE 40MG INJ (PROTONIX) (C9113) IV SCH (09:50)
[2017-03-08] MEDS ORDERED: ZOFR20TA PO (11:34)
[2017-03-08] MEDS ORDERED: RISATAB3 PO (11:34)
[2017-03-08] MEDS ORDERED: LOPERAMIDE 2 MG CAP PO ONE (11:45)
--- NOTE | 2017-03-08 12:16 | DSES ---
DATE OF ADMISSION: 03/07/2017 DATE OF DISCHARGE: 03/08/2017 SPECIALISTS INVOLVED IN CARE: Include Dr. Dawson. No complications during the stay. No procedures performed during the stay. DISCHARGE DIAGNOSIS: Is suspected partial small bowel obstruction, bronchiolitis obliterans-organizing pneumonia (BOOP), gastroesophageal reflux disease (GERD), acute renal failure, gastroenteritis with diarrhea, hypokalemia, bronchiectasis. The following is a summary of his hospitalization: This is a 56-year-old who presented with fever, shortness of breath, abdominal pain. He had a fever at home. Was thought to have pneumonia in the setting of known BOOP. He had general malaise. Presented with abdominal pain and discomfort. Had a CT scan, which was thought to be moderate partial small bowel obstruction. Was seen in consultation by Dr. Dawson, who thought the diagnosis was much more likely gastroenteritis. Was admitted to the hospitalist service. Had conservative therapy with improvement. His diet was advanced, and he was able to be discharged. Temperature 98, pulse 78, respiratory rate 18, blood pressure 115/76, 94% on room air. He is awake, alert, tolerating a diet. Has no complaints of pain, chest pain, shortness of breath, and feels ready to go home. White cell count 7.1 and creatinine is 1.22. His lactic acid was initially elevated at time of presentation, which repeated to a normal level within 4 hours. DISCHARGE INSTRUCTIONS: Will include the following: Followup with Dr. Pérez within 1 week. Activity as tolerated. Diet as tolerated. Continue with Zofran 4 mg every 6 hours as needed for nausea, probiotic one tablet by mouth twice daily. Continue albuterol per previous home dosing. Continue with EpiPen as needed. Jennifer 180 mg by mouth daily. Breo Ellipta inhaled daily. Lidoderm one patch chest daily. Methocarbamol 750 mg by mouth twice daily as needed for muscle spasm. Naprosyn twice daily as needed. Protonix 40 mg by mouth daily. Prednisone as directed. Tylenol PM as needed. Discontinue Biaxin.
== END 2017-03-08 13:40 | disposition home or self-care (01) | DRG 144 ==
LOC: EDBD 22:20 → M ED 23:12 → M ED INP 03-07 04:31 → M MS5PR 03-07 15:55
PROVIDERS: ADMIT Internal Medicine; ATTEND Internal Medicine
DX: J40 Bronchitis, not specified as acute or chronic (principal); N17.9 Acute kidney failure, unspecified; J84.89 Other specified interstitial pulmonary diseases; K52.9 Noninfective gastroenteritis and colitis, unspecified; E87.6 Hypokalemia; K21.9 Gastro-esophageal reflux disease without esophagitis; Z79.899 Other long term (current) drug therapy; Z79.52 Long term (current) use of systemic steroids; Z88.8 Allergy status to other drugs, medicaments and biological substances; Z91.038 Other insect allergy status; J47.9 Bronchiectasis, uncomplicated

== ENCOUNTER → 2017-05-09 | Outpatient (REF) | payer OTHER ==
[~2017-05-09] MED LIST changes: +ALLE180T33 PO; +BIAX500T13 PO; +EPIP0.3I2 INJ; -IBUP200C PO; +IBUP200C10 PO; +LIDO5DIS41 TD; +METH75TA PO; +NAPR500T3 PO; +PANT40TA2 PO; +PRED10TA2 PO; +PRED20TA PO; +RISATAB3 PO; +TYLE1TAB5 PO; +ZOFR20TA PO
== END ==
LOC: M LAB REF 17:07
PROVIDERS: ATTEND Internal Medicine Pulmonary Disease
DX: J47.9 Bronchiectasis, uncomplicated (principal)

== ENCOUNTER → 2017-07-07 | Outpatient (REF) | payer OTHER | LOC: M LAB REF 17:23 | PROVIDERS: ATTEND Nurse Practitioner Adult Health | DX: J15.1 Pneumonia due to Pseudomonas (principal) ==